=== PATIENT | male | born 1965 | race Caucasian/White ===

== ENCOUNTER → 2023-02-21 14:58 | Outpatient (CLI) | payer OTHER, SELFPAY ==
--- NOTE | 2023-02-21 | DI.US.S_ITS ---
PROCEDURE: US PERIPH VENOUS LOW EXTREM LT INDICATIONS: EDEMA 9 DAYS POST LEFT TKA TECHNIQUE: Real-time imaging, as well as color and pulse Doppler interrogation, were performed of the lower extremity deep veins from the inguinal ligament to the popliteal fossa. COMPARISON: None. FINDINGS: The common femoral, femoral and popliteal veins are normally compressible, and free of intraluminal thrombus. Color and pulse Doppler demonstrate normal phasic intraluminal flow. There is normal augmentation response to distal compression maneuver. Note is made of a 6.5 x 4.0 x 3.3 cm complex fluid collection at the medial left knee potentially a postoperative hematoma or complex seroma. IMPRESSION: No DVT found. 6.5 cm maximal dimension complex fluid collection as discussed which could be more accurately assessed if clinically warranted by contrast-enhanced MR. Dictated by: Orestes Laws M.D. on 02/21/2023 at 21:40 Approved by: Orestes Laws M.D. on 02/21/2023 at 21:41
== END ==
PROVIDERS: Family Provider Family Medicine; PCP Family Medicine; Referring Provider Physician Assistant Medical; Visit Provider Physician Assistant Medical
DX: M25.462 Effusion, left knee (principal); Z96.652 Presence of left artificial knee joint
CPT/HCPCS: 93971

== ENCOUNTER → 2023-08-23 12:22 | Outpatient (CLI) | payer OTHER, SELFPAY ==
--- NOTE | 2023-08-23 12:23 | DI.US.S_ITS ---
PROCEDURE: US SCROTUM INDICATIONS: Epididymis, bilateral* TECHNIQUE: Real-time scanning was performed of the scrotum and testicles, with image documentation. Color and pulse Doppler interrogation was performed of both testicles. COMPARISON: None. FINDINGS: Right: Testicle is normal in size at 3.9 x 2.9 x 2.4 cm, and homogenous in echotexture. Epididymis is normal in overall size . Multiple simple appearing cysts are seen scattered in the right epididymal head measures up to 3.2 x 2.5 x 2.3 cm in size and show no internal vascularity. No hydrocele or varicoceles. Overlying scrotal skin is normal in thickness. Left: Testicle is normal in size at 3.9 x 2.6 x 2.0 cm, and homogeneous in echotexture. Epididymis is normal in overall size . Multiple simple appearing cysts are also noted in left epididymal head measures up to 2 x 1.3 x 1.3 cm in size and show no internal vascularity. No hydrocele or varicoceles. Overlying scrotal skin is normal in thickness. Doppler: Color and pulse Doppler demonstrate normal and symmetric arterial flow in both testicles. IMPRESSION: 1. Bilateral epididymal head cysts as described above. No solid appearing epididymal lesions. 2. Normal appearing bilateral testes. Dictated by: Chau Bond M.D. on 08/23/2023 at 16:35 Approved by: Chau Bond M.D. on 08/23/2023 at 16:37
== END ==
PROVIDERS: Family Provider Family Medicine; PCP Family Medicine; Referring Provider Specialist; Visit Provider Specialist
DX: N50.3 Cyst of epididymis (principal); N43.40 Spermatocele of epididymis, unspecified
CPT/HCPCS: 76870

== ENCOUNTER → 2024-04-23 16:27 | Outpatient (ROUT) | payer OTHER, SELFPAY | PROVIDERS: Family Provider Family Medicine; PCP Family Medicine; Visit Provider Dermatology | DX: L02.423 Furuncle of right upper limb (principal); L02.223 Furuncle of chest wall | CPT/HCPCS: 87070; 87075; 87205 ==